=== PATIENT | female | born 1960 | race Caucasian/White ===

== ENCOUNTER 2017-08-01 10:51 | Emergency (ER) | payer OTHER ==
[~2017-08-01] VITALS: Ht 172.7 cm; Wt 91.6 kg
[~2017-08-01 10:51] MED LIST: AMOXICILLIN875 MG PO; AUGMENTIN 875875 MG PO; PREDNICOT20 MG PO; PROAIR HFA0.09 MG/Ac INH; ROBITUSSIN W/CO10 ML PO
--- NOTE | 2017-08-01 10:59 | ED THROAT/DENTAL COMPLAINT ---
History of Present Illness General Chief Complaint: Sore Throat, Dental Pain Stated Complaint: SORE THROAT,SWOLLEN TONSILLS Source: patient, old records Exam Limitations: no limitations Vital Signs & Intake/Output Vital Signs & Intake/Output Vital Signs Date Time Temp Pulse Resp B/P B/P Pulse O2 O2 Flow FiO2 Mean Ox Delivery Rate 08/01 1100 97.1 100 15 165/92 97 Room Air Room Air Allergies Coded Allergies: No Known Allergies (08/01/17) Reconcile Medications Albuterol Sulfate (Proair Hfa) 0.09 MG/Actuation GIOVANNY 1 PUFF INH 4 TIMES/DAY PRN DYSPNEA Amoxicillin 875 MG TABLET 1 TAB PO BID INFECTINO Amoxicillin/Clavulanate Potass (Amox-Clav 875-125 MG Tablet) 1 EACH TABLET 1 TAB PO BID INFECTION Amoxicillin/Potassium Clav (Augmentin 875-125 Tablet) 875 MG-125 MG TABLET 1 TAB PO BID pharyngitis Prednisone (Prednicot) 20 MG TAB 2 TAB PO DAILY BRONCHITIS Robitussin AC (Guaifenesin-Codeine Syrup) 200 MG-20 MG/10 ML LIQUID 10 ML PO Q6 PRN COUGH Triage Nurses Notes Reviewed? yes Onset: Abrupt Duration: day(s): (1), constant Timing: recent history Injury Environment: home Severity: moderate Severity Numbers: 5 No Modifying Factors: none Associated Symptoms: denies HPI: 57 yo female with no medical history presents to the ER for evaluation c/o 1 day history of sore throat a/w congestion. no fever, chills, cough. no sick contacts , no recent dental work. she took advil wo improvement. no change in voice. no modifying factors or associated sx otherwise (Jn Mendoza) Past History Travel History Traveled to [place] past 21 day No Medical History Any Pertinent Medical History? none Surgical History Surgical History: none Psychosocial History What is your primary language Serbian Family History Hx Contributory? No (Jn Mendoza) Review of Systems Review of Systems Constitutional: Reports: see HPI. Comments Review of systems: See HPI, All other systems negative. Constitutional, no chills no fever, no malaise HEENT: sore throat congestion, no ear pain Cardiovascular: No chest pain , no palpitation Skin: no rashes, no change in skin Respiratory: No dyspnea no cough no sputum GI: No nausea no vomiting, no diarrhea, no bloating/constipation Muscle skeletal: No joint pain, no back pain, no neck pain, Neurologic: , no headache Heme/endocrine: No bruising Immunology: No lymphadenopathy (Jn Mendoza) Physical Exam Physical Exam General Appearance: well developed/nourished, no apparent distress, alert Mouth/Throat: PHARYNX ERYTHEMATOUS, NO EXUDATE, NO TRISMUS, NO UVUAL DISPLACEMENT Comments: Well-developed well-nourished patient in no apparent distress. Head/Face: Atraumatic, no maxillary/frontal sinus tenderness, no facial swelling Eyes: PERRL, EOMI, no conjunctival injection. No nystagmus Ear:External auditory canal and Tympanic membranes clear, no erythema, no FB. Nose: atraumatic.Normal inspection: No bleeding, no septal hematoma Throat: Moist mucous membranes.Pharynx normal. No pharyngeal erythema/exudate seen. No stridor/drooling or assymetry. No swelling or edema. Neck: Supple, no lymphadenopathy, FROM Back: FROM Cardiovascular: Regular rate and rhythms no murmurs rubs or gallops, Respiratory: Chest nontender.There were no bony deformities, no asymmetry. No respiratory distress. Patient speaking in full complete sentences. Breath sounds clear to auscultation bilaterally: NO W/R/R Extremities: full range of motion Neuro: awake, alert, and oriented to person, place and time. There were no obvious focal neurologic abnormalities. Skin: Warm & dry;No appreciable rash on exposed skin Psych: Mood affect normal, normal memory normal judgment. Core Measures ACS in differential dx? No Sepsis Present: No Sepsis Focused Exam Completed? No (Jn Mendoza) Progress Differential Diagnosis: epiglottitis, viri-tonsillar abscess, stomatitis/ gingivitis, strep pharyngitis, mono Plan of Care: Orders Procedure Date/time Status THROAT CULTURE W/QUICK STREP 08/01 1057 Active D/W THE PT HER RESULTS, NEED FOR SUPPORTIVE care, rx for augmentin provided. return precautions discussed at length. she feels comfortable with plan (Jn Mendoza) Departure Departure Time of Disposition: 113 Disposition: HOME OR SELF CARE Condition: Stable Clinical Impression Primary Impression: Pharyngitis Referrals: Shantelle BRUNER,Eric Mensah Additional Instructions: augmentin as directed. interchange tylenol and motrin every 4-6 hours drink plenty of fluids. return with any concerns Departure Forms: Customer Survey General Discharge Information Prescriptions: Current Visit Scripts Amoxicillin/Potassium Clav (Augmentin 875-125 Tablet) 1 TAB PO BID #14 TAB (Jn Mendoza) PA/JEWELRY SALES COORDINATOR Co-Sign Statement Statement: ED Attending supervision documentation- [] I saw and evaluated the patient. I have also reviewed all the pertinent lab results and diagnostic results. I agree with the findings and the plan of care as documented in the PA's/JEWELRY SALES COORDINATOR's documentation. [X] I have reviewed the ED Record and agree with the PA's/JEWELRY SALES COORDINATOR's documentation. [] Additions or exceptions (if any) to the PAs/JEWELRY SALES COORDINATOR's note and plan are summarized below: [] (Opal BRUNER,Jovanni Mensah)
[2017-08-01 11:00] VITALS: BP 165/92
[2017-08-01] MEDS ORDERED: AUGMENTIN 875-1 EACH PO (11:34)
== END 2017-08-01 11:38 ==
LOC: ERH 10:51
DX: J02.9 Acute pharyngitis, unspecified (principal)